=== PATIENT | male | born 1990 | race Caucasian/White ===

== ENCOUNTER → 2018-03-23 | Outpatient (CLI) | payer BC ==
--- NOTE | 2018-03-23 12:49 | XR ---
Lumbosacral spine HISTORY: Low back pain 5 views of the lumbosacral spine Bone mineralization, disc spaces, alignment are maintained. No evident spondylolysis. No evident para spinal mass. IMPRESSION: Normal lumbar spine, consider lumbar MRI for better evaluation.
== END | disposition home or self-care (01) ==
LOC: RADXRYALE 10:46
PROVIDERS: ATTEND Physician Assistant Medical
DX: M54.5 Low back pain (principal)
CPT/HCPCS: 72110